=== PATIENT | male | born 1995 | race Caucasian/White ===

== ENCOUNTER 2017-12-30 18:01 | Emergency (ER) | payer OTHER ==
--- NOTE | 2017-12-30 18:32 | EDPHY ---
H & P Time Seen by Provider: 12/30/17 18:30 HPI/ROS: CHIEF COMPLAINT: Upper lip laceration HISTORY OF PRESENT ILLNESS: Patient is a 22-year-old male states he was at a football game and his friend threw him of beer and T missed catching the beer and struck him in the upper lip. He denies any loss of consciousness. Denies any trouble swallowing or any intraoral bleeding. Does admit to drinking multiple beers this afternoon but denies any other drug use. He takes no prescription medication. ROS As detailed in HPI Smoking Status: Never smoked Physical Exam: General: Alert and oriented. Nontoxic appearing. No acute distress HEENT: Pupils PERRLA. No oral lesions. Normal dental alignment with no subluxation of the teeth. Cardiopulmonary: Regular rate and rhythm. No lower extremity edema Skin: Surrency warm and dry. 0.5 cm laceration to the midline upper lip involving the vermilion border Musculoskeletal: Equal strength in upper extremities and lower extremities. Ambulatory. Constitutional: Initial Vital Signs Temperature (C) 36.7 C 12/30/17 18:04 Heart Rate 68 12/30/17 18:04 Respiratory Rate 18 12/30/17 18:04 Blood Pressure 122/58 H 12/30/17 18:04 O2 Sat (%) 93 12/30/17 18:04 O2 Delivery Mode Room Air Allergies/Adverse Reactions: No Known Allergies Allergy (Unverified 12/30/17 18:04) Home Medications: Medication Instructions Recorded NK [No Known Home Meds] 12/30/17 Medical Decision Making Procedures: Procedure: Laceration repair. Verbal consent was obtained from the patient. The 0.5 cm laceration on the upper lip was anesthetized in the usual fashion. The wound was irrigated, draped and explored. There were no deep structures involved. The wound was repaired with # 3 6.0 nylon simple sutures. The wound repair was closely approximated. The procedure was performed by myself. ED Course/Re-evaluation: Patient here with laceration to the upper lip involving the vermilion border. The laceration was anesthetized with local infiltration with lidocaine. The wound was well approximated. There is no evidence of facial fracture or dental injury. Departure - Departure Disposition: Home, Routine, Self-Care Clinical Impression: Lip laceration Condition: Good Instructions: Laceration (ED) Additional Instructions: Follow-up in 5 days for suture removal Referrals: DOUGLAS CARMONA [Primary Care Provider] - As per Instructions
[2017-12-30 19:41] VITALS: BP 115/75
== END 2017-12-30 19:41 | disposition home or self-care (01) ==
PROC: 0CQ0XZZ Repair Upper Lip, External Approach (ICD-10-PCS; principal; 2017-12-30)
DX: S01.511A Laceration without foreign body of lip, initial encounter (principal); W20.8XXA Other cause of strike by thrown, projected or falling object, initial encounter; Y92.321 Football field as the place of occurrence of the external cause; Y93.9 Activity, unspecified; Y99.9 Unspecified external cause status